=== PATIENT | female | born 1995 | race Caucasian/White ===

== ENCOUNTER 2016-12-12 | Emergency (ER) | payer OTHER | END 2016-12-12 09:25 | disposition home or self-care (01) | DX: J02.0 Streptococcal pharyngitis (principal) | CPT/HCPCS: 81001; 84703; 87081; 87880; 99283 ==

== ENCOUNTER 2021-11-05 12:58 | Emergency (ER) | payer BC ==
[~2021-11-05 12:58] MED LIST: AMOXICILLIN500 MG PO; BACTRIM DS TAB1 EACH PO; DELSYM30 MG/5 ML PO; EFFEXOR XR75 MG PO; IBUPROFEN600 MG PO; IBUPROFEN800 MG PO; ISIBLOOM PO; PENVEE K 500 M500 MG PO; ZOFRAN4 MG PO
[2021-11-05] MEDS ORDERED: OMNICEF 300 MG300 MG PO (15:27)
== END 2021-11-05 15:50 | disposition home or self-care (01) ==
LOC: ER1 12:58
DX: N39.0 Urinary tract infection, site not specified (principal)
CPT/HCPCS: 81001; 84703; 87077; 87086; 87186; 99283

== ENCOUNTER 2022-04-19 07:13 | Emergency (ER) | payer OTHER ==
[~2022-04-19 07:13] MED LIST changes: +OMNICEF 300 MG300 MG PO
[2022-04-19] MEDS ORDERED: HYDROCODON-ACE1 EAC4 PO (08:32)
[2022-04-19] MEDS ORDERED: AMOX TR-K CLV1 EAC4 PO (08:32)
== END 2022-04-19 09:11 | disposition home or self-care (01) ==
LOC: ER1 07:13
DX: K02.9 Dental caries, unspecified (principal)
CPT/HCPCS: 99283